=== PATIENT | male | born 1970 | race Caucasian/White ===

== ENCOUNTER 2016-12-18 19:17 | Emergency (ER) | payer SELFPAY ==
[2016-12-18 19:17] VITALS: BMI 23.6
[2016-12-18 19:34] VITALS: TEMP 98.5
--- NOTE | 2016-12-18 20:39 | EDPRACDOC ---
- General Information Chief Complaint: Nausea,Vomiting,Diarrhea Stated Complaint: ABDOMINAL PAIN/DIARRHEA Time Seen by Provider: 12/18/16 20:32 Home Medications: Home Medications Glipizide Xl [Glucotrol Xl] 5 mg PO DAILY 12/18/16 Allergies/Adverse Reactions: Allergies Allergy/AdvReac Type Severity Reaction Status Date / Time No Known Allergies Allergy Verified 07/30/16 10:28 - History of Present Illness Onset: 3-4 weeks HPI: PT STATES INTERMITTENT EPISODES OF LOOSE WATERY STOOL X 3-4 WEEKS, STATES "STOMACH STARTS ROLLING" AND HE IMMEDIATELY HAS TO HAVE DIARRHEA, STATES HAD MULTIPLE EPISODES OF SAME LAST NIGHT, STATES FAMILY GAVE HIM MEDICINE FOR DIARRHEA AND HE HAS NOT HAD ANY TODAY. PT DENIES N/V, NO FEVER OR CHILLS, NO CP OR SOBR, NO RECENT ANTIBIOTICS OR SICK CONTACTS. Description: Reports: Spontaneous Recent: Denies: Travel, Contact Exposure, Antibiotic Use, Laxative Use, Other Recent Ingestion of: Reports: Nothing Relevant History: Reports: None Diarrhea Quality: Reports: Watery Associated Signs & Symptoms: Reports: Abdominal Pain Pain Quality: Reports: Aching Pain Location: Reports: Diffuse ED Past Medical History - History Reviewed Yes Nurses notes reviewed and agree except as marked - Patient Medical History Neurological History: Reports: Seizures Psychological History: Denies: Depression Systemic History: Reports: Diabetes (INSULIN) - Social Medical History Smoking Status: Never smoker ETOH: None Substance Abuse: Illicit Drugs (OCCASSIONAL THC) EDM Review of Systems - Review of Systems Constitutional: negative: Chills, Fever Eyes: negative: Blurred Vision, Double Vision Ears: negative: Drainage, Pain Throat: negative: Pain Nose: negative: Congestion, Discharge Respiratory: negative: Cough, Shortness of Breath, Wheezing Cardiovascular: negative: Chest Pain, Palpitations Gastrointestinal: Diarrhea, Pain. negative: Nausea, Vomiting Genitourinary: negative: Dysuria, Frequency Neurological: negative: Dizziness, Headache, Numbness, Weakness Musculoskeletal: No Symptoms Reported Integumentary: No Symptoms Reported - Physical Exam Constitutional: Alert (Awake), No apparent distress Oriented to: Time, Person, Place Last recorded Vital Signs: Last Vital Signs Temp 98.5 F 12/18/16 19:30 Pulse 93 12/18/16 19:30 Resp 20 12/18/16 19:30 BP 139/81 12/18/16 19:30 Pulse Ox 95 12/18/16 19:30 Oxygen Pulse Oxygen Saturation 95 O2 Device Room Air Oxygen Flow Rate Fraction of Inspired Oxygen ( FIO2) - HEENT Head: Normal ( normocephalic) Eye Exam: Normal (PERRL, EOMI, Sclera white) Oropharynx: Normal (Pharynx:Moist without exudate,Gums-no swelling) Tympanic Membrane: Normal ENT EAC: Normal TMJ: Normal Nose: No Symptoms Reported (septum midline) Neck: Normal (FROM, trachea at midline) - Respiratory/Cardiovascular Respiratory: Normal - CTA (BBS clear to auscultation without adventitious sounds ) Cardiovascular: Normal (RRR without murmur, gallop or rub) - GI Auscultation: Normal (NABS) Palpation: Normal (Soft,No rebound or guarding, non distended) Tenderness: Non tender Bell's Sign: Negative - Musculoskeletal Back: Normal (Non-Tender) Extremities: Normal (Normal tone, Pulses 2+ No cyanosis or edema, FROM) - Integumentary Skin: Normal, Warm, Dry Lymphatics: Normal (no adenopathy) - Neurologic Memory Impaired: Normal Motor Function: Normal (Normal tone, Pulses 2+ No cyanosis or edema, FROM) Cranial Nerve: Normal (CN II-X11 intact sensation, strength 5/5) Cerebellar: Normal Mood Description: Normal Perception: Normal - Differential Diagnosis Bacterial Diarrhea, Parasitic Diarrhea, Viral Diarrhea, Gastroenteritis, Inflammatory BD - Re-evaluation Re-evaluation 1 Re-evaluation Time: 21:56 (FEELS BETTER, NO DIARRHEA WHILE IN ED) - Results 12/18/16 21:00 12/18/16 21:00 12/18/16 21:56 Laboratory Results - last 24 hr 12/18/16 12/18/16 12/18/16 21:00 21:00 21:00 WBC 11.0 H RBC 5.98 Hgb 19.1 H Hct 56.0 H MCV 94 MCH 32.0 MCHC 34.1 RDW 14.5 Plt Count 231 MPV 9.2 Neut % (Auto) 55.5 Lymph % (Auto) 26.9 [place] % (Auto) 11.1 H Eos % (Auto) 5.5 H Baso % (Auto) 1.0 Absolute Neuts (auto) 6.05 Absolute Lymphs (auto) 2.86 Sodium 140 Potassium 4.2 Chloride 104 Carbon Dioxide 22 Anion Gap 18 H BUN 16 Creatinine 1.10 Estimated GFR (MDRD) > 60 Glucose 135 H Calculated Osmolality 272 Calcium 9.2 Total Bilirubin 0.8 AST 42 ALT 107 H Alkaline Phosphatase 59 Total Protein 7.4 Albumin 4.5 Lipase 72 Urine Color Dark yellow Urine Clarity Clear Urine pH 5.0 Ur Specific [place] 1.030 Urine Protein Neg Urine Glucose (UA) 1+ Urine Ketones Neg Urine Occult Blood Neg Urine Nitrite Neg Urine Bilirubin Neg Urine Urobilinogen <2.0 Ur Leukocyte Esterase Neg Urine WBC 0-2 Ur Epithelial Cells Occ Urine Mucus Mod H Decision Time to Discharge: 21:56 - Departure Disposition: Home Condition: Stable Final Diagnosis: Diarrhea Qualifiers: Diarrhea type: unspecified type Qualified Code(s): R19.7 - Diarrhea, unspecified Instructions: Acute Diarrhea (ED) Education/Counseling Given To: Patient Education/Counseling Given Regarding: Diagnosis, Treatment, Prognosis, Follow Up Referrals: Calin Shah MD [Staff Physician] - One Week Additional Instructions: REST, DRINK PLENTY OF FLUIDS, RETURN TO THE ED FOR ANY WORSENING SYMPTOMS OR CONCERNS.
[2016-12-18] MEDS ORDERED: NS 1,000 ML IV ONE (20:40)
[2016-12-18 21:13] LABS: AUTOMATED EOSINOPHIL 5.5 % (0-5); AUTOMATED LYMPH 26.9 % (17-44); AUTOMATED MONOCYTE 11.1 % (3-10); AUTOMATED NEUTROPHIL 55.5 % (45-76); MPV 9.2 fL (7.4-10.4)
[2016-12-18 21:14] LABS: LEUKOCYTES/URINE NEG (NEGATIVE); NITRITE/URINE NEG (NEGATIVE); URINE OCCULT BLOOD NEG (NEG/TRACE); WBC/URINE 0-2 (0-2)
[2016-12-18 21:22] LABS: BLOOD UREA NITROGEN 16 MG/DL (9-20); CALCIUM 9.2 MG/DL (8.4-10.2); CALCULATED OSMOLALITY 272 MOs/Kg (270-290); CHLORIDE 104 mEq/L (98-107); GLUCOSE 135 MG/DL (70-99); SODIUM LEVEL 140 mEq/L (137-146); TOTAL PROTEIN 7.4 G/DL (6.3-8.2)
[2016-12-18] MEDS ORDERED: ONDANSETRON HCL 4 MG/2 ML VIAL IV ONE (21:34)
[2016-12-18] MEDS ORDERED: ONDANSETRON HCL 4 MG/2 ML VIAL ONE (21:36)
[2016-12-18 22:37] VITALS: BP 152/68; PULSE 86
== END 2016-12-18 22:25 | disposition home or self-care (01) ==
LOC: ED 19:17
DX: R19.7 Diarrhea, unspecified (principal); E11.9 Type 2 diabetes mellitus without complications; Z79.899 Other long term (current) drug therapy
CPT/HCPCS: 36415; 80053; 81001; 83690; 85025; 96361; 96374; 99283; J2405